=== PATIENT | male | born 1960 ===

== ENCOUNTER 2018-04-20 11:36 | Inpatient (IN) | payer OTHER ==
[~2018-04-20] VITALS: Ht 170.2 cm; Wt 88.9 kg
[2018-05-05] MEDS ORDERED: NEXIUM20 M1 PO (11:16)
[2018-05-05] MEDS ORDERED: TAMS0.4C PO (11:17)
== END 2018-05-15 16:21 | disposition home or self-care (01) | DRG 331 ==
LOC: SURH 05-12 08:40 → O/R 05-12 08:40 → SURG 05-12 10:15 → SURH 05-12 14:11 → SURG 05-12 18:45 → SURH 05-13 21:35
PROVIDERS: Surgery
PROC: 07TC4ZZ Resection of Pelvis Lymphatic, Percutaneous Endoscopic Approach (ICD-10-PCS; 2018-05-12)
PROC: 0DJD8ZZ Inspection of Lower Intestinal Tract, Via Natural or Artificial Opening Endoscopic (ICD-10-PCS; 2018-05-12)
PROC: 0DTN4ZZ Resection of Sigmoid Colon, Percutaneous Endoscopic Approach (ICD-10-PCS; principal; 2018-05-12 18:45)
DX: D12.7 Benign neoplasm of rectosigmoid junction (principal); K21.9 Gastro-esophageal reflux disease without esophagitis; N40.0 Benign prostatic hyperplasia without lower urinary tract symptoms